=== PATIENT | female | born 2000 ===

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

== ENCOUNTER 2023-11-29 06:31 | Emergency (ER) | payer OTHER, SELFPAY ==
[2023-11-29 06:41] VITALS: BP 111/61; PULSE 66; RESP 18; TEMP 36.7; O2SAT 98; BMI 31.6
--- NOTE | 2023-11-29 08:37 | ED.GENADULT ---
HPI - General Adult General Chief complaint: Upper Respiratory Symptoms Stated complaint: Sore throat/Fever/Headache Time Seen by Provider: 11/29/23 08:31 Source: patient Mode of arrival: ambulatory Limitations: no limitations History of Present Illness HPI narrative: Patient is a 22 year old assigned female at with no reported medical history presenting to the emergency department today with a sore throat and cough. Patient states that over the last 4 days she has had a cough and a sore throat. Patient denies any dizziness, lightheadedness, abdominal pain, nausea, vomiting, fever, chills, blurry vision, double vision, loss of vision, chest pain, difficulty breathing, shortness of breath, back pain, night sweats, pain with urination, increased urinary frequency, increased urinary urgency, blood in her urine or stool, syncope or a near syncopal episode, recent trauma or falls, bowel incontinence, bladder incontinence, bowel retention, bladder retention, or any other complaints at this time. Onset (ago): day(s) (4) Severity: mild Severity scale (1-10): 2 Relieving factors: none Exacerbating factors: none Associated symptoms: cough Treatments prior to arrival: none Related Data Allergies Allergy/AdvReac Type Severity Reaction Status Date / Time fish derived [fish] Allergy Itchy Eyes Verified 11/29/23 06:45 Penicillins Allergy Itchy Eyes Verified 11/29/23 06:45 Review of Systems Constitutional: Constitutional: Reports no additional constitutional complaints, Denies chills, Denies fever(s) and Denies night sweats Eyes: Eyes: Reports no additional eye complaints, Denies blurry vision, Denies change in vision, Denies diplopia, Denies eye discharge, Denies loss of vision and Denies eye pain ENT: Denies dizziness and Reports sore throat Cardiovascular: Cardiovascular: Reports no additional cardiovascular complaints, Denies chest pain, Denies lightheadedness, Denies Loss of Consciousness and Denies dyspnea Respiratory: Respiratory: Reports no additional respiratory complaints, Reports cough and Denies dyspnea Gastrointestinal: Gastrointestinal: Reports no additional gastrointestinal complaints, Denies abdominal pain, Denies melena, Denies hematochezia, Denies change in bowel habits and Denies change in stool character Genitourinary: Genitourinary: Denies hematuria, Denies urinary frequency, Denies dysuria, Denies urinary incontinence, Denies urinary hesitancy and Denies urinary urgency Musculoskeletal: Musculoskeletal: Reports no additional musculoskeletal complaints, Denies numbness and Denies tingling Neurologic: Denies dizziness, Denies loss of vision, Denies numbness and Denies tingling Psychiatric: Psychiatric: Reports no additional psychiatric complaints Endocrine: Endocrine: Reports no additional endocrine complaints Hematologic/Lymphatic: Hematologic/Lymphatic: Reports no additional hematologic/lymphatic complaints Allergic/Immunologic: Allergic/Immunologic: Reports no additional allergic/immunologic complaints PMFSH Past Medical History Attestation statement: The following information was validated with the patient. Source: old records reviewed and nursing notes reviewed Onset Date is defined in the Problem List Problems that require an onset date and time if occurred within 24 hrs of arrival to the ED Aortic Dissection and Rupture; Neurologic impairment; Cardiopulmonary Arrest; Endotracheal Intubation; Insertion or Replacement of Mechanical Circulatory Assist Device Social History Social History Advance Directives: No Physical Exam ED Vital Signs: Vital Signs - 24 hr 11/29/23 06:41 Temperature 98.0 F Pulse Rate 66 Respiratory Rate 18 Blood Pressure 111/61 Pulse Oximetry 98 Oxygen Delivery Method Room Air BMI result Body Mass Index 31.6 Const General: cooperative, no acute distress, alert and awake Nutritional Appearance: well nourished Orientation/consciousness: patient oriented x3 Limitations: no limitations HENMT Head: Yes normal to inspection and Yes atraumatic Ears: hearing grossly normal bilaterally and external ears normal General nose exam: Normal external nose present, no nasal discharge noted and no epistaxis Face and sinus: Yes normal facial exam, No abrasion and No laceration Mouth: Normal oral and palatal mucosa present, no drooling and no muffled voice Eyes General: appearance normal, both eyes and all related structures Periorbital: periorbital findings normal Eyelids: Yes eyelids normal Conjunctivae: conjunctivae normal Pupils: Equal, round and reactive pupils present EOM: EOMs intact bilaterally Neck Neck: Yes normal visual inspection, Yes full ROM and Yes no lymphadenopathy Chest Chest palpation & inspection: normal inspection of the chest Resp Effort & Inspection: normal respiratory effort and able to speak in complete sentences GI Inspection: Yes normal to inspection Neuro General: patient oriented x3 and moves all extremities Cranial nerves: Yes Equal, round and reactive pupils present Cognition (Neuro): normal cognition Motor exam (neuro): 03/30 motor strength present throughout Sensory Exam: Normal double simultaneous stimulation for sensation Coordination: [id number] test normal Extrem General: Yes normal to inspection, Yes full ROM and Yes capillary refill normal Psych Appearance: grossly normal Mental Status: mental status grossly normal Affect: normal affect Attitude: cooperative Thought process: Normal thought process present Thought content: Normal thought content present Insight: Good insight present (Psych) Medical Decision Making Medical Decision Making [facility] Narrative: Patient is a 22 year old assigned female at with no reported medical history presenting to the emergency department today with a sore throat and a cough. Patient's physical exam was unremarkable. Patient's COVID-19 and influenza swabs were negative. Patient's RSV test was positive. I explained my physical exam findings as well as all test results to the patient. I answered all questions asked by the patient. I stressed the importance of the patient taking her medication as prescribed. I stressed the importance of the patient following up with her primary care provider. I stressed the importance of the patient returning to the emergency department immediately if her symptoms were to worsen or if she were to develop any dizziness, shortness of breath, difficulty breathing, chest pain, blurry vision, loss of vision, nausea, vomiting, abdominal pain, fever, chills, back pain, or any other complaints. Patient verbalized agreement and understanding with this treatment plan and discharge. Differential Diagnosis Differential Diagnoses: The differential diagnosis associated with the presentation includes RSV Influenza COVID-19 URI Viral illness Pharyngitis Admission/Observation Consideration of admission/observation: Escalation of care including admission/observation considered Patient would have been admitted to the hospital had her work up had any findings where hospital admission was appropriate and her clinical presentation warranted hospital admission. Lab Data [facility] Lab Attestation statement: I reviewed the patient's lab results. My interpretation of these results are in the [facility] Rationale portion of this note. Labs: Lab Results 11/29/23 Range/Units 06:47 Influenza Type A (PCR) NEGATIVE (Negative) Influenza Type B (PCR) NEGATIVE (Negative) RSV RNA Qual (PCR) POSITIVE A (Negative) SARS-CoV-2 RNA (RT-PCR) NEGATIVE (Negative) S. pyogenes GrpA Negative (Negative) Discharge Plan Discharge Clinical Impression: Respiratory syncytial virus (RSV) Patient Disposition: Home, Self-Care Instructions: Respiratory Syncytial Virus (ED) Additional Instructions: Follow up with your primary care provider. Return to the emergency department immediately if your symptoms worsen or if you develop any dizziness, shortness of breath, difficulty breathing, chest pain, blurry vision, loss of vision, nausea, vomiting, abdominal pain, fever, chills, back pain, or any other complaints. Referrals: [facility] [place] [facility] [place]Provider Group] (Call to establish and follow up with a primary care provider. If you already have a primary care provider, please follow up with them.) [facility] [place] [place] [facility] [place] [facility] [Provider Group] (Call to establish and follow up with a primary care provider. If you already have a primary care provider, please follow up with them.) [facility] [place] [place] [facility] [place] [facility] [Provider Group] (Call to establish and follow up with a primary care provider. If you already have a primary care provider, please follow up with them.) Stand Alone Forms: Work/School Release Interventions: ED Discharge Assessment Last Done: 11/29/23 08:47 Discharge Date/Time: 11/29/23 08:47 Print Language: Uzbek
== END 2023-11-29 08:47 | disposition home or self-care (01) ==
PROVIDERS: Emergency Provider Student in an Organized Health Care Education/Training Program
DX: J02.9 Acute pharyngitis, unspecified (principal); R05.9 Cough, unspecified; B97.4 Respiratory syncytial virus as the cause of diseases classified elsewhere; Z20.822 Contact with and (suspected) exposure to COVID-19; Z20.828 Contact with and (suspected) exposure to other viral communicable diseases
CPT/HCPCS: 0241U; 87651; 99282; 99283

== ENCOUNTER 2024-02-03 22:26 | Emergency (ER) | payer OTHER, SELFPAY ==
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
[2024-02-03 22:47] VITALS: BP 112/84; PULSE 96; O2SAT 97
[2024-02-03 22:54] VITALS: BP 115/64; PULSE 78; RESP 16; TEMP 36.3; O2SAT 99; BMI 34.5
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
[2024-02-04 01:28] VITALS: BP 107/63; PULSE 72; RESP 16; TEMP 36.3; O2SAT 97
== END 2024-02-04 01:32 | disposition home or self-care (01) ==
PROVIDERS: Emergency Provider Emergency Medicine
DX: S00.83XA Contusion of other part of head, initial encounter (principal); R51.9 Headache, unspecified; V43.62XA Car passenger injured in collision with other type car in traffic accident, initial encounter; Y93.9 Activity, unspecified; Y92.410 Unspecified street and highway as the place of occurrence of the external cause; Y99.8 Other external cause status
CPT/HCPCS: 70450; 99283; 99284

== ENCOUNTER 2024-03-10 08:44 | Emergency (ER) | payer OTHER, SELFPAY ==
[2024-03-10 08:56] VITALS: BP 113/67; PULSE 64; RESP 16; TEMP 36.7; O2SAT 98; BMI 38.9
--- NOTE | 2024-03-10 09:52 | ED.EAR ---
HPI - Ear Problem General Chief complaint: Ear Problems Stated complaint: L ear pain Time Seen by Provider: 03/10/24 09:08 Source: patient and RN notes reviewed Mode of arrival: ambulatory Limitations: no limitations History of Present Illness HPI Narrative: This is a 23-year-old female, with no known medical problems, who presents emergency department complaints of left ear pain since last night. Patient reports that last night she was unable to get to sleep due to left ear pain. Patient denies any fevers, chills, nasal congestion, cough, chest pain, shortness of breath, abdominal pain, nausea, vomiting or diarrhea. Denies taking any medications at home to treat her current symptoms. Endorsing some difficulty hearing out of her left ear, no drainage. No other complaints or concerns at this time. MD Complaint: ear pain and decreased hearing Location: left ear Duration: constant Relieving factors: nothing Exacerbating factors: nothing Associated symptoms ear: decreased hearing Treatment prior to arrival: none Related Data Previous Rx's ?Medication ?Instructions ?Recorded cyclobenzaprine 5 mg tablet 5 mg PO TID PRN muscle spasm #6 02/04/24 tabs lidocaine 5 % topical patch 1 patch topical DAILY #15 ea 02/04/24 azithromycin 250 mg tablet See Rx Instructions PO .COMPLEX #6 03/10/24 tabs Allergies Allergy/AdvReac Type Severity Reaction Status Date / Time fish derived [fish] Allergy Itchy Eyes Verified 03/10/24 08:58 Penicillins Allergy Itchy Eyes Verified 03/10/24 08:58 Review of Systems Review of Systems: Yes all other systems are reviewed and are negative Constitutional: Constitutional: Reports as per [facility] Past Medical History Attestation statement: The following information was validated with the patient. Social History Social History Advance Directives: No Advance Directives Information Provided: Yes Physical Exam Vital Signs: Vital Signs: Last Vital Signs Temp 98.0 F 03/10/24 08:56 Pulse 64 03/10/24 08:56 Resp 16 03/10/24 08:56 BP 113/67 03/10/24 08:56 Pulse Ox 98 03/10/24 08:56 O2 Del Method Room Air 03/10/24 08:56 BMI result Body Mass Index 38.9 Const: General: cooperative, comfortable and no acute distress Orientation/consciousness: patient oriented x3 Limitations: no limitations HEENT: Other: Left TM is erythematous, and bulging, canal is nonerythematous, nonedematous Head: Yes normal to inspection, Yes normocephalic and Yes atraumatic Ears: hearing grossly normal bilaterally General nose exam: Normal external nose present Face and sinus: Yes normal facial exam Mouth: Normal oral and palatal mucosa present, oropharynx normal and moist mucous membranes Throat: Yes posterior oropharynx normal Eyes: General: appearance normal, both eyes and all related structures Eyelids: Yes eyelids normal Conjunctivae: conjunctivae normal Sclerae: sclerae normal Pupils: Equal, round and reactive pupils present EOM: EOMs intact bilaterally Neck: Neck: Yes normal visual inspection, Yes full ROM and Yes no lymphadenopathy Lymphatic: no lymphadenopathy noted Chest: Chest palpation & inspection: normal inspection of the chest Resp: Effort & Inspection: normal respiratory effort and able to speak in complete sentences Auscultation: clear to auscultation bilaterally, no crackles, no rales, no rhonchi and no wheezes Cardio: Rate: regular rate Rhythm: regular rhythm Heart sounds: S1 normal heart sound present and S2 normal heart sound present GI: Inspection: Yes normal to inspection Skin: General skin exam: no rashes or lesions noted Trauma: no lacerations or abrasions Wounds: no wounds Neuro: General: patient oriented x3 and moves all extremities Cranial nerves: Yes Equal, round and reactive pupils present Extrem: General: Yes normal to inspection Right upper extremity: normal to inspection Left upper extremity: normal to inspection Right lower extremity: normal to inspection Left lower extremity: normal to inspection Medical Decision Making Medical Decision Making MDM Narrative: This is a 23-year-old female, with no known medical problems, who presents to the emergency department with complaints of left ear pain since last night. On arrival, vital signs within normal limits. She is nontoxic appearing, left ear TM is erythematous and bulging, dull. No mastoid tenderness. Differential diagnoses include otitis media, otitis externa, TM perforation, cerumen impaction mastoiditis-unlikely. Go examination consistent with otitis media, will treat with course of antibiotics. Patient states that she has a penicillin allergy as a child and has not taken any penicillins since. Given allergy, will treat with azithromycin, given return precautions. She understands and agrees with plan. Patient stable for discharge Differential Diagnosis Differential Diagnoses: The differential diagnosis associated with the presentation includes See above Admission/Observation Consideration of admission/observation: Escalation of care including admission/observation considered Escalation of care including admission/observation considered however given workup today not warranted at this time. Discharge Plan Discharge Clinical Impression: Otitis media Patient Disposition: Home, Self-Care Instructions: Ear Infection (ED) Additional Instructions: You were seen in the emergency department due to left ear pain. Your left ear appears to be infected. Please take full course of antibiotics even if you start to feel better. Alternate between ibuprofen and Tylenol as needed for pain. Drink plenty of fluids get plenty of rest. Follow-up with your primary care physician regarding this visit, call today to make an appointment. You may follow-up with search engineer as needed if you continue to have ongoing symptoms or problems with your ear. If any new or worsening symptoms occur including but not limited to fevers, chills, worsening pain, chest pain, shortness of breath, please return for re-evaluation. Prescriptions: New azithromycin 250 mg tablet See Rx Instructions PO .COMPLEX Qty: 6 0RF Rx Instructions: For 250 mg dose pack: take 500 mg today (day 1), then 250 mg for 4 days (days 2-5) No Action cyclobenzaprine 5 mg tablet 5 mg PO TID PRN (Reason: muscle spasm) Qty: 6 0RF lidocaine 5 % adhesive patch,medicated 1 patch topical DAILY Qty: 15 0RF Rx Instructions: leave on most painful area for up to 12 hrs Referrals: Brooks Lozada [Physician] - Print Language: [place] Citizen
[2024-03-10 10:25] VITALS: BP 118/65; PULSE 60; RESP 16; TEMP 36.6; O2SAT 99
== END 2024-03-10 10:25 | disposition home or self-care (01) ==
PROVIDERS: Emergency Provider Emergency Medicine
DX: H66.92 Otitis media, unspecified, left ear (principal)
CPT/HCPCS: 99282; 99283

== ENCOUNTER 2024-03-15 20:48 | Emergency (ER) | payer OTHER, SELFPAY ==
[2024-03-15 20:54] VITALS: BP 132/77; PULSE 87; RESP 16; TEMP 36.6; O2SAT 100; BMI 37.4
[2024-03-15 22:15] VITALS: BP 123/76; PULSE 80; RESP 17; TEMP 37.4; O2SAT 100
[2024-03-15 23:26] VITALS: BP 139/94; PULSE 85; RESP 16; TEMP 37.1; O2SAT 100
--- NOTE | 2024-03-15 23:34 | ED_ITS ---
HPI - Ear Problem General Chief complaint: Ear Problems Stated complaint: Earache Time Seen by Provider: 03/15/24 22:33 Source: patient and RN notes reviewed Mode of arrival: ambulatory Limitations: no limitations History of Present Illness HPI Narrative: This is a 23-year-old female, with no known medical problems, who presents emergency department with complaints of intermittent hearing loss at a left ear. Patient was seen here 5 days ago was diagnosed with an ear infection was prescribed azithromycin. She completed the full course of antibiotics however states that the pain has improved however reports that she has had decreased hearing out of her left ear. Denies any fevers, chills, chest pain, shortness on breath, abdominal pain, nausea, vomiting or diarrhea. She is otherwise feeling well. She states that she had a fever 5 days ago otherwise no other fevers. She rates her she would left ear otherwise denies any excessive drainage or bleeding. MD Complaint: ear discharge and decreased hearing Location: left ear Duration: constant Context: recent illness Associated symptoms ear: decreased hearing Treatment prior to arrival: none Related Data Previous Rx's ?Medication ?Instructions ?Recorded cyclobenzaprine 5 mg tablet 5 mg PO TID PRN muscle spasm #6 02/04/24 tabs lidocaine 5 % topical patch 1 patch topical DAILY #15 ea 02/04/24 azithromycin 250 mg tablet See Rx Instructions PO .COMPLEX #6 03/10/24 tabs azithromycin 250 mg tablet See Rx Instructions PO .COMPLEX #6 03/11/24 (Zithromax Z-Keith) tabs phenylephrine HCl 10 mg tablet 10 mg PO Q4-6H PRN nasal 03/15/24 (Sudafed PE) congestion #10 tabs prednisone 20 mg tablet 40 mg (2 x 20 mg) PO DAILY 5 days 03/15/24 #10 tabs Allergies Allergy/AdvReac Type Severity Reaction Status Date / Time fish derived [fish] Allergy Itchy Eyes Verified 03/15/24 20:56 Penicillins Allergy Itchy Eyes Verified 03/15/24 20:56 Review of Systems Review of Systems: Yes all other systems are reviewed and are negative Constitutional: Constitutional: Reports as per [facility] Social History Social History Smoked in Last 30 Days: No Use of substances other than those prescribed or required for medical reasons: No Advance Directives: No Advance Directives Information Provided: No Patient : No Physical Exam Vital Signs: Vital Signs: Last Vital Signs Temp 98.7 F 03/16/24 00:05 Pulse 85 03/16/24 00:05 Resp 16 03/16/24 00:05 BP 139/94 H 03/16/24 00:05 Pulse Ox 100 03/16/24 00:05 O2 Del Method Room Air 03/16/24 00:05 BMI result Body Mass Index 37.4 Const: General: cooperative, comfortable and no acute distress Orientation/consciousness: patient oriented x3 Limitations: no limitations HEENT: Other: Left TM with air-fluid levels, dull, nonerythematous, nonbulging. No pain with earlobe tugging, external manipulation of the ear. Canal is not edematous or erythematous Head: Yes normal to inspection, Yes normocephalic and Yes atraumatic Ears: hearing grossly normal bilaterally General nose exam: Normal external nose present Face and sinus: Yes normal facial exam Mouth: Normal oral and palatal mucosa present, oropharynx normal and moist mucous membranes Throat: Yes posterior oropharynx normal Eyes: General: appearance normal, both eyes and all related structures Eyelids: Yes eyelids normal Conjunctivae: conjunctivae normal Sclerae: sclerae normal Pupils: Equal, round and reactive pupils present EOM: EOMs intact bilaterally Neck: Neck: Yes normal visual inspection, Yes full ROM and Yes no lymphadenopathy Lymphatic: no lymphadenopathy noted Chest: Chest palpation & inspection: normal inspection of the chest Resp: Effort & Inspection: normal respiratory effort and able to speak in complete sentences Auscultation: clear to auscultation bilaterally, no crackles, no rales, no rhonchi and no wheezes Cardio: Rate: regular rate Rhythm: regular rhythm Heart sounds: S1 normal heart sound present and S2 normal heart sound present GI: Inspection: Yes normal to inspection Skin: General skin exam: no rashes or lesions noted Trauma: no lacerations or abrasions Wounds: no wounds Neuro: General: patient oriented x3 and moves all extremities Cranial nerves: Yes Equal, round and reactive pupils present Extrem: General: Yes normal to inspection Right upper extremity: normal to inspection Left upper extremity: normal to inspection Right lower extremity: normal to inspection Left lower extremity: normal to inspection Medical Decision Making Medical Decision Making MDM Narrative: This is a 23-year-old female, no known medical problems, who presents emergency department with intermittent decreased left ear hearing. Patient was treated with azithromycin 5 days ago for ear infection as she has a allergy to penicillins. She took the full course however states that the pain has improved however states that she has had intermittent hearing loss from the left ear. O n arrival, patient nontoxic appearing, vital signs within normal limits. Left TM is dull, no signs of infection on examination today. Given patient has already been prescribed antibiotics that any evidence of infection on exam, reluctant to prescribe 2nd antibiotic. Patient does have air-fluid levels, and a dull TM, likely serous otitis versus Eustachian tube dysfunction. Will treat with prednisone and Sudafed. Patient given return precautions as well as ENT follow-up. She understands and agrees with plan. Patient stable for discharge Differential Diagnosis Differential Diagnoses: The differential diagnosis associated with the presentation includes Otitis media, otitis externa, serous otitis, mastoiditis-unlikely Admission/Observation Consideration of admission/observation: Escalation of care including admission/observation considered Escalation of care including admission/observation considered however given workup today not warranted at this time. Discharge Plan Discharge Clinical Impression: Acute serous otitis media Patient Disposition: Home, Self-Care Instructions: Serous Otitis Media (ED) Additional Instructions: You have fluid behind her eardrum which is causing you have your symptoms. Please take decongestant as prescribed. I am also putting you on prednisone, this is an anti-inflammatory, please take as prescribed. Follow-up with bacteriology research assistant, call on Sunday to make an appointment. If any new or worsening symptoms occur including but not limited to worsening pain, swelling, fevers, chills, please return for re-evaluation. Prescriptions: New phenylephrine HCl [Sudafed PE] 10 mg tablet 10 mg PO Q4-6H PRN (Reason: nasal congestion) Qty: 10 0RF prednisone 20 mg tablet 40 mg PO DAILY 5 Days Qty: 10 0RF No Action cyclobenzaprine 5 mg tablet 5 mg PO TID PRN (Reason: muscle spasm) Qty: 6 0RF lidocaine 5 % adhesive patch,medicated 1 patch topical DAILY Qty: 15 0RF Rx Instructions: leave on most painful area for up to 12 hrs azithromycin 250 mg tablet See Rx Instructions PO .COMPLEX Qty: 6 0RF Rx Instructions: For 250 mg dose pack: take 500 mg today (day 1), then 250 mg for 4 days (days 2-5) azithromycin [Zithromax Z-Keith] 250 mg tablet See Rx Instructions .ROUTE .COMPLEX Qty: 6 0RF Rx Instructions: For 250 mg dose pack: take 500 mg today (day 1), then 250 mg for 4 days (days 2-5) Referrals: Brooks Lozada [Physician] - Stand Alone Forms: Work/School Release Interventions: ED Discharge Assessment Last Done: 03/16/24 00:05 Discharge Date/Time: 03/16/24 00:09 Print Language: [place]
[2024-03-16 00:05] VITALS: BP 139/94; PULSE 85; RESP 16; TEMP 37.1; O2SAT 100
== END 2024-03-16 00:09 | disposition home or self-care (01) ==
PROVIDERS: Emergency Provider Emergency Medicine Emergency Medical Services
DX: H65.02 Acute serous otitis media, left ear (principal)
CPT/HCPCS: 99283; 99284

== ENCOUNTER 2024-08-08 16:39 | Emergency (ER) | payer OTHER, SELFPAY ==
--- NOTE | 2024-08-08 | ECG_ITS ---
Test Reason : chest pain Blood Pressure : / mmHG Vent. Rate : 077 BPM Atrial Rate : 077 BPM P-R Int : 144 ms QRS Dur : 088 ms QT Int : 374 ms P-R-T Axes : 016 023 013 degrees QTc Int : 423 ms Normal sinus rhythm with sinus arrhythmia Nonspecific T wave abnormality Abnormal ECG No previous ECGs available Referred By: Generic ED Physician Electronically Signed By:PAULINA MCGOVERN
--- NOTE | ~2024-08-08 | XR_ITS ---
EXAMINATION: XR CHEST CLINICAL INFORMATION: Right-sided chest pain and tightness. COMPARISON: None available. TECHNIQUE: 2 views of the chest were obtained. FINDINGS: The heart is normal in size. The lungs are clear. Pleural spaces are clear. No pneumothorax. No acute osseous abnormality. XR/XR chest 2V IMPRESSION: No acute cardiopulmonary disease. Electronically signed by: Justen Herrera DO 08/08/2024 06:48 PM EDT
[2024-08-08 17:01] VITALS: BP 105/43; PULSE 84; RESP 20; TEMP 37.1; O2SAT 96; BMI 35.8
--- NOTE | 2024-08-08 17:02 | ED_ITS ---
HPI - Chest Pain General Chief Complaint: Chest Pain Stated Complaint: chest pain Related Data Previous Rx's ?Medication ?Instructions ?Recorded cyclobenzaprine 5 mg tablet 5 mg PO TID PRN muscle spasm #6 02/04/24 tabs lidocaine 5 % topical patch 1 patch topical DAILY #15 ea 02/04/24 azithromycin 250 mg tablet See Rx Instructions PO .COMPLEX #6 03/10/24 tabs azithromycin 250 mg tablet See Rx Instructions PO .COMPLEX #6 03/11/24 (Zithromax Z-Keith) tabs phenylephrine HCl 10 mg tablet 10 mg PO Q4-6H PRN nasal 03/15/24 (Sudafed PE) congestion #10 tabs prednisone 20 mg tablet 40 mg (2 x 20 mg) PO DAILY 5 days 03/15/24 #10 tabs Allergies Allergy/AdvReac Type Severity Reaction Status Date / Time fish derived [fish] Allergy Itchy Eyes Verified 08/08/24 17:02 Penicillins Allergy Itchy Eyes Verified 08/08/24 17:02 [facility] Social History Social History Smoked in Last 30 Days: No Use of substances other than those prescribed or required for medical reasons: Yes Substance Use Type: Marijuana Advance Directives: No Advance Directives Information Provided: No Do you have a plan to hurt others: No Plan Physical Exam 2 Vital Signs: Vital Signs: Last Vital Signs Temp 97.9 F 08/09/24 00:06 Pulse 73 08/09/24 00:06 Resp 17 08/09/24 00:06 BP 106/56 L 08/09/24 00:06 Pulse Ox 100 08/09/24 00:06 O2 Del Method Room Air 08/09/24 00:06 BMI result Body Mass Index 35.8 Course Course Course Narrative: This is a Rapid Medical Examination (RME) performed by Cayla De PA-C in triage. Full HPI, ROS, assessment and treatment plan per primary provider in the Main ED. 23 yo female here for eval of intermittent substernal chest pain, [place] since this morning. tested positive for covid today. + well appearing. lungs clear. rrr. no calf tenderness. Plan: ekg, cxr, labs, viral serology Reevaluation(s) Reevaluation #1: Patient left the emergency department before myself or any of the other clinicians could review or explain physical exam findings, test results, need or lack there of for additional testing, treatment options, or a treatment plan. Medical Decision Making Lab Data 08/08/24 17:14 08/08/24 17:14 Labs: Lab Results 08/08/24 08/08/24 Range/Units 17:14 20:48 WBC 9.6 (4.8-10.8) X10*3/uL RBC 4.63 (4.20-5.50) X10*6/uL Hgb 10.9 L (12.0-16.0) g/dl Hct 35.0 L (37.0-47.0) % MCV 75.6 L (80.0-98.0) fL MCH 23.5 L (27.0-33.0) pg MCHC 31.1 (31.0-35.0) g/dl RDW 16.1 H (11.0-16.0) % Plt Count 389 (160-400) X10*3/uL MPV 9.3 L (9.4-12.3) fL Immature Gran % (Auto) 0.2 (0.0-0.4) % Neut % (Auto) 68.3 (45-73) % Lymph % (Auto) 23.6 (20-40) % Hubbard % (Auto) 3.9 (2-11) % Eos % (Auto) 3.4 (0-4) % Baso % (Auto) 0.6 (0-2) % Lymph # (Auto) 2.3 (1.2-4.9) X10*3/uL Hubbard # (Auto) 0.4 (0.1-1.2) X10*3/uL Eos # (Auto) 0.3 (0.0-0.4) X10*3/uL Baso # (Auto) 0.1 (0.0-0.2) X10*3/uL Abs Immat Gran (auto) 0.02 (0.00-0.03) X10*3/uL Absolute Neuts (auto) 6.6 (2.0-8.3) x10*3/uL Absolute Nucleated RBC 0.000 (0.0-0.012) X10*3/uL Nucleated RBC % (auto) 0.0 (0.0-0.2) /100WBC Sodium 142 (135-145) mmol/L Potassium 4.3 (3.3-5.1) mmol/L Chloride 109 H (96-108) mmol/L Carbon Dioxide 26 (22-29) mmol/L Anion Gap 11 L (12-20) BUN 9 (9-16) mg/dL Creatinine 0.85 (0.5-1.4) mg/dL Estim Creat Clear Calc 121.0 Estimated GFR > 60 Random Glucose 99 (60-115) mg/dL Calcium 9.5 (8.4-10.2) mg/dL Magnesium 2.0 (1.6-2.6) mg/dL Total Bilirubin 0.3 (0.0-1.0) mg/dL AST 17 (5-31) U/L ALT 15 (0-31) U/L Alkaline Phosphatase 67 (39-117) U/L Troponin I High Sens < 2.7 < 2.7 (<3.5-17.0) ng/L Total Protein 7.3 (6.5-8.0) g/dL Albumin 4.0 (3.5-5.0) g/dL Influenza Type A (PCR) NEGATIVE (Negative) Influenza Type B (PCR) NEGATIVE (Negative) RSV RNA Qual (PCR) NEGATIVE (Negative) SARS-CoV-2 RNA (RT-PCR) NEGATIVE (Negative) Discharge Plan Discharge Clinical Impression: Chest pain Patient Disposition: Left W/O Completing Treatment Prescriptions: No Action phenylephrine HCl [Sudafed PE] 10 mg tablet 10 mg PO Q4-6H PRN (Reason: nasal congestion) Qty: 10 0RF prednisone 20 mg tablet 40 mg PO DAILY 5 Days Qty: 10 0RF cyclobenzaprine 5 mg tablet 5 mg PO TID PRN (Reason: muscle spasm) Qty: 6 0RF lidocaine 5 % adhesive patch,medicated 1 patch topical DAILY Qty: 15 0RF Rx Instructions: leave on most painful area for up to 12 hrs azithromycin 250 mg tablet See Rx Instructions PO .COMPLEX Qty: 6 0RF Rx Instructions: For 250 mg dose pack: take 500 mg today (day 1), then 250 mg for 4 days (days 2-5) azithromycin [Zithromax Z-Keith] 250 mg tablet See Rx Instructions .ROUTE .COMPLEX Qty: 6 0RF Rx Instructions: For 250 mg dose pack: take 500 mg today (day 1), then 250 mg for 4 days (days 2-5) Interventions: LWBS Worksheet Last Done: 08/09/24 01:28 Discharge Date/Time: 08/09/24 01:32
[2024-08-08 17:23] LABS: MANUAL DIFF FLAG NO
[2024-08-08 17:39] LABS: Alanine Aminotransferase 15 U/L (0-31); Alkaline Phosphatase 67 U/L (39-117); Anion Gap 11 (12-20); Aspartate Amino Transferase 17 U/L (5-31); Bilirubin Total 0.3 mg/dL (0.0-1.0); Blood Urea Nitrogen 9 mg/dL (9-16); Calcium 9.5 mg/dL (8.4-10.2); Carbon Dioxide 26 mmol/L (22-29); Chloride 109 mmol/L (96-108); Estimated Glomerular Filt Rate > 60; Glucose Random 99 mg/dL (60-115); Potassium 4.3 mmol/L (3.3-5.1); Sodium 142 mmol/L (135-145); Total Protein 7.3 g/dL (6.5-8.0)
[2024-08-08 17:41] LABS: Basophils Absolute Auto 0.1 X10*3/uL (0.0-0.2); Basophils Percent Auto 0.6 % (0-2); Eosinophils Absolute Auto 0.3 X10*3/uL (0.0-0.4); Eosinophils Percent Auto 3.4 % (0-4); Hemoglobin 10.9 g/dl (12.0-16.0); Imm Gran Abs Auto 0.02 X10*3/uL (0.00-0.03); Imm Gran Pct Auto 0.2 % (0.0-0.4); Lymphocytes Absolute Auto 2.3 X10*3/uL (1.2-4.9); Lymphocytes Percent Auto 23.6 % (20-40); Mean Corpuscular HGB Conc 31.1 g/dl (31.0-35.0); Mean Corpuscular Hemoglobin 23.5 pg (27.0-33.0); Mean Corpuscular Volume 75.6 fL (80.0-98.0); Mean Platelet Volume 9.3 fL (9.4-12.3); Monocytes Absolute Auto 0.4 X10*3/uL (0.1-1.2); Monocytes Percent Auto 3.9 % (2-11); Neutrophils Absolute Auto 6.6 x10*3/uL (2.0-8.3); Neutrophils Percent Auto 68.3 % (45-73); Platelet Count 389 X10*3/uL (160-400); Red Blood Count 4.63 X10*6/uL (4.20-5.50); Red Cell Distribution Width 16.1 % (11.0-16.0); White Blood Count 9.6 X10*3/uL (4.8-10.8)
[2024-08-08 17:51] LABS: Troponin-I High Sensitivity < 2.7 ng/L (<3.5-17.0)
[2024-08-08 18:27] LABS: Influenza A PCR NEGATIVE (Negative); Influenza B PCR NEGATIVE (Negative); Resp Syncy Virus RNA Qual PCR NEGATIVE (Negative); SARS COV2 PCR INHOUSE NEGATIVE (Negative)
[2024-08-08 20:25] VITALS: BP 160/88; PULSE 86; RESP 20; TEMP 37.2; O2SAT 100
[2024-08-08 21:35] LABS: Troponin-I High Sensitivity < 2.7 ng/L (<3.5-17.0)
[2024-08-08 23:24] VITALS: BP 121/59; PULSE 74; RESP 18; TEMP 36.9; O2SAT 100
[2024-08-09 00:06] VITALS: BP 106/56; PULSE 73; RESP 17; TEMP 36.6; O2SAT 100
--- NOTE | 2024-08-09 00:50 | PC.NURSE ---
Pt ca&ox4, no signs of distress. Pt reports 3/10 right sided chest pain Plan of care ongoing.
--- NOTE | 2024-08-09 01:28 | PC.NURSE ---
Pt reports she cannot wait to be seen she has family obligations Provider notified and aware. Charge notified and aware.
== END 2024-08-09 01:32 | disposition left against medical advice (07) ==
PROVIDERS: Physician Assistant Medical; Emergency Provider Emergency Medicine
DX: R07.9 Chest pain, unspecified (principal); Z03.818 Encounter for observation for suspected exposure to other biological agents ruled out; R51.9 Headache, unspecified; F12.90 Cannabis use, unspecified, uncomplicated; Z79.899 Other long term (current) drug therapy
CPT/HCPCS: 0241U; 36415; 71046; 80053; 83735; 84484; 85025; 93005; 99283; 99284